=== PATIENT | male | born 1985 | race Caucasian/White ===

== ENCOUNTER 2019-06-01 22:17 | Emergency (ER) | payer BC ==
[~2019-06-01] VITALS: Ht 182.9 cm; Wt 127.0 kg
[2019-06-02 01:19] VITALS: BP 162/88
== END 2019-06-02 01:20 | disposition home or self-care (01) ==
LOC: ER 22:17
DX: T40.2X1A Poisoning by other opioids, accidental (unintentional), initial encounter (principal); F17.210 Nicotine dependence, cigarettes, uncomplicated; Y92.89 Other specified places as the place of occurrence of the external cause